=== PATIENT | female | born 1950 | race Caucasian/White ===

== ENCOUNTER 2017-09-27 08:24 | Emergency (ER) | payer MEDICARE, OTHER ==
[2017-09-27] MEDS: TETANUS/DIPHTHERIA TOXOID ADULT 0.5 ML VIAL IM (09:27)
[2017-09-27] MEDS: LIDOCAINE 1%/EPINEPHrine 1:100,000 SOLN 20 ML VIAL INFIL (09:27)
== END 2017-09-27 11:58 | disposition home or self-care (01) ==
LOC: PHED 08:24
DX: S01.81XA Laceration without foreign body of other part of head, initial encounter (principal); S01.01XA Laceration without foreign body of scalp, initial encounter; F32.9 Major depressive disorder, single episode, unspecified; E78.00 Pure hypercholesterolemia, unspecified; I10 Essential (primary) hypertension; E07.9 Disorder of thyroid, unspecified; Z23 Encounter for immunization; W01.0XXA Fall on same level from slipping, tripping and stumbling without subsequent striking against object, initial encounter; Y92.009 Unspecified place in unspecified non-institutional (private) residence as the place of occurrence of the external cause
CPT/HCPCS: 12002; 12053; 70450; 70486; 90471; 90714; 99283-25